=== PATIENT | male | born 1940 | race Caucasian/White ===

== ENCOUNTER 2020-04-07 17:50 | Inpatient (IN) | payer OTHER ==
[~2020-04-07] VITALS: Ht 172.7 cm; Wt 85.9 kg
[2020-04-07 19:33] VITALS: BP 86/56
--- NOTE | 2020-04-07 19:39 | NUR ---
PATIENT ARRIVED ON UNIT VIA W/ FROM [facility]. TAKEN TO ER. R/O ASSESS COVID. BACK TO THIS UNIT. PT ALERT XS 1-2 V.S. 98.3 22 80 108/63 O2 SAT 96 % RA. LUNGS CTA / DIM NO COUGH NO RESP DISTRESS, PT HAS NO TEETH NO DENTURES. NO HEARING AIDS , ABD SOFT ROUNDED. STATES BM 04/06/20 PT HAS SKIN TEARS AND ABRASIONS WOUND CARE PICTURES TAKEN. PT NEEDS TANK SYSTEMS MAINTAINER, TOENAILS NEED TRIMMED. PT STATES DOES NOT SMOKE DOES NOT DRINK. DOES NOT WEAR O2 AT HOME. BELONGINGS BROUGHT 1 T SHIRT 1 PAIR OF PAPER PANTS AND 1 WATCH WITH BLACK BAND. PT ASSIST XS 2 TO W/C WITH CHAIR ALARM. TAKEN TO DINING ROOM STATES NO PAIN AND NO RESP DISTRESS NOTED.
--- NOTE | 2020-04-08 05:18 | NUR ---
Assumed care of pt @ 1900. Pt calm et cooperative this shift. Took medications whole without difficulty. Socialized in dayroom with peers until HS. Ambulates with assistance of staff et unsteady gait. VSWNL. Health assessment with multiple skin abnormalities that were noted et photographs in chart. No other abnormalities noted at this time. Denies SI/HI. Currently resting in recliner in dayroom with eys open. Will continue to monitor per protocol.
[2020-04-08 09:36] VITALS: BP 93/59
--- NOTE | 2020-04-08 13:41 | NUR ---
IRINA called and spoke with pt's spouse and gissel Cooley who is the 12/06 caregiver. Sw completed the intake assessment and TP. Irina set up a family meeting for 04/09 at 10am. Family would like pt to go home after inpt psych
[2020-04-08 15:40] LABS: CALCIUM 8.7 mg/dL (8.5-10.1); CREATININE 1.4 mg/dL (0.7-1.3); POTASSIUM 4.7 mmol/L (3.5-5.1)
--- NOTE | 2020-04-08 18:22 | NUR ---
0700 ASSUMED CARE OF PATIENT, PATIENT IN DAYROOM AT THAT TIME ASLEEP. 0800 PATIENT SITTING AT TABLE FOR BREAKFAST. PATIENT ATE 100% OF MEAL. MEDICATIONS TAKEN WHOLE WITHOUT DIFFICULTY. PATIENT LUNG SOUNDS CLEAR, BS ACTIVE. PATIENTS AGGITATION INCREASES AROUND NOON AND ASKING TO LEAVE. EVENT ORGANIZER EXPLAINS TO PATIENT REGARDING FALLS AND PLAN IN PLACE TO PREVENT. CHAIR ALARM IN PLACE. PATIENT CONTINUES TO GET UP WITHOUT ASSISTANCE. PATIENT AMBULATES WITH A SHUFFLE. PATIENT SPEAKS WITH VIA PHONE AND AGGITATION DECREASES AFTER THAT. PATIENT TO BR X2 WITH LOOSE TO WATER BROWN STOOL WILL CONTINUE TO MONITOR AND PASS INFO IN REPORT. WILL CONTINUE TO MONITOR
[2020-04-08 19:56] VITALS: BP 95/55
[2020-04-08 21:30] VITALS: BP 95/55
--- NOTE | 2020-04-09 04:50 | NUR ---
Assumed pt care at 1900. Pt alert to self only on assesment and impulsive, getting up from chair to chair in the day room at beginning of shift several times w/o waiting on staff help. Also asking about when he can go home. Up with shaffled/slow gait,WC used for safety. Took HS meds w/o problems. No SI/HI voiced.Pt unable to sleep;sleep aid administered with partial effect noted. Pt has BLE edema 2-3+,needs frequent reminders to elevate extremities w/o success. Up at this time sitting on the chair in his room. Chair alarm on,will continue to monitor pt.
[2020-04-09 07:50] VITALS: BP 107/56
--- NOTE | 2020-04-09 10:56 | NUR ---
Irina and Dr storm had a family meeting and it was dcided by marc that pt needs to be placed in a LTC memory care. Pt's family reported that a medicaid josafat was generated at [facility]. Irina asked [facility] to get a copy of that. family understands that pt will go to the first LTC that acceps him. Irina sent referrals to [facility] and [facility]
--- NOTE | 2020-04-09 14:02 | NUR ---
JEREL faxed the DPOA paperwork to Maye [facility] [phone] fax confirmation received
--- NOTE | 2020-04-09 14:08 | NUR ---
Pt was declined at [facility]- they are full, [facility] as they are not secure enough. Sw also sent referral to [facility].
--- NOTE | 2020-04-09 14:12 | NUR ---
Irina also sent referral to [facility]
--- NOTE | 2020-04-09 17:28 | NUR ---
1700 PATIENT TO DAYROOM FROM BEDROOM USING WALKER AND ASSISTED X1. PATIENT EATING DINNER AT THAT TIME. MEDICATIONS GIVE WHOLE WITHOUT DIFFICULTY. DENIES OTHER NEEDS.
--- NOTE | 2020-04-09 18:32 | NUR ---
PATIENT SITTING IN DAYROOM AT TABLE. DRESSING TO LEFT ARM REMOVED WITH SMALL ABRASION NOTED, NO DRAINAGE AND LEFT OPEN TO AIR. DRESSING TO RIGHT KNEE REMOVED AND CLEANED AND REDRESSED. SMALL SEROUS DRAINAGE NOTED. PATIENT CALM AND COOPERATIVE AT THAT TIME. PATIENT REQUESTING TO CALL FAMILY. WILL ASSIST PATIENT TO COMMUNICATE WITH FAMILY SOON PHONE AVAILABLE. WILL CONTINUE TO OBSERVE
[2020-04-09 20:11] VITALS: BP 108/57
--- NOTE | 2020-04-10 05:37 | NUR ---
Assumed care of pt @ 1900. Pt calm et cooperative most of shift. Pt became agitated in felt dyeing machine tender hours because he did not want to stay seated or lie down in bed. Took medications whole without difficulty. Ambulates with shuffling gait. Pt encouraged several times to use the walker but only gets the walker when prompted. VSWNL. Health assessment with no abnormalities other than previously noted. Denies SI/HI. Currently resting in bed with eyes closed. Will continue to monitor per protocol.
[2020-04-10 07:54] VITALS: BP 95/43
--- NOTE | 2020-04-10 16:30 | NUR ---
[facility] declined Pt
[2020-04-10 18:04] VITALS: BP 95/43
--- NOTE | 2020-04-10 18:12 | NUR ---
ASSUMED CARE AT 0700 THIS MORNING. PT. UP, DRESSED AND ON THE UNIT. HE IS PLEASANT AND COOPERATIVE WITH STAFF AND PEERS. HE WAS PLEASANT AND COOPERATIVE WITH TAKING HIS MEDICATIONS. HE ATE HIS MEALS AND WAS ON THE UNIT MUCH OF THE DAY.
[2020-04-10 19:15] VITALS: BP 93/53
[2020-04-10 21:00] VITALS: BP 95/43
--- NOTE | 2020-04-10 22:00 | NUR ---
Assumed care of patient this pm shift. Patient sitting in mileu with peers. Patient smiling and appears content. Patient denies pain. Patient denies hi/si. Patient takes medications whole. Patient ambulates with walker. Patients assessment shows clear breath sounds, active bowel sounds, and s1 s2 heard with auscultation. Patient recieved 2mg of haldol in the evening as patient was showing negative behaviors and became difficult to redirect. We will continue to monitor per hospital protocol.
[2020-04-11 07:39] VITALS: BP 83/40
[2020-04-11 10:18] VITALS: BP 83/40
--- NOTE | 2020-04-11 10:42 | NUR ---
ASSUMED CARE AT 0700 THIS MORNING. PT. CONTINUES TO BE STABLE. HE REMAINS QUITE CONFUSED. HE IS A&O X 1 TO 2. HE AMBULATES WITH WALKER, BUT FORGETS IT OFTEN AND NEEDS REMINDED TO RETRIEVE IT TO USE. HE AMBULATES WITH A SHUFFLING GAIT. HE IS PLEASANT AND COOPERATIVE WITH TAKING MEDICATIONS. ATE WELL THIS MORNING.
--- NOTE | 2020-04-11 11:38 | NUR ---
JEREL faxed referrals to the following [facility]: [phone] [facility]: [phone] [facility]: [phone]
--- NOTE | 2020-04-11 17:54 | H ---
[facility] [place] [address] HISTORY AND PHYSICAL Name: MIKE HERNANDEZ Room #: 520B-B ADM IN M.R.#: [id number] Admission: 04/07/20 Attend Phys: Munir Contreras DO Discharge: Date of : 40 Report #: [id number] THIS REPORT FOR: cc: MEGHANN - No family physician/PCP FAM - No family physician/PCP Munir Contreras DO ~ CC: Munir Contreras [facility] physician/PCP DATE OF SERVICE: 04/07/2020 INPATIENT PSYCHIATRIC EVALUATION ATTENDING PHYSICIAN: Munir Contreras DO NON PROFIT DIRECTOR: Calbe Quintanilla MD PRIMARY CARE PHYSICIAN: Kevin Lowe MD HOSPITALIST CARE: Francisca Cota DO REASON FOR ADMISSION: Transfer from [facility] due to confusion, agitation, possible need for placement. SOURCES OF INFORMATION: Records from [facility], brief interview with the patient who is a very poor historian. HISTORY OF PRESENT ILLNESS: This is a 79-year-old male admitted via transfer from [facility] in [place], [place]. The patient apparently lives with his who has a fair degree of disability. His home is in [place], [place], his date of admission was April 03 to [facility] and apparently he was admitted with encephalopathy, likely due to chronic liver failure. He had agitative behaviors. He has had a previous hospitalization at [facility] in February of this year. He had been sent there from [facility] due to cirrhosis of the liver and had a paracentesis. While at [facility], the patient was prescribed Geodon. He was discharged home with family following the hospitalization. Family brought the patient back to the Emergency Room during the current admission at [facility] due to concerns for increased agitation, worsening mood and falls prior to the admission. On the floor at the [facility], he was reported to have agitation, mood lability at times yelling and screaming throughout the night. He has also had periods of calm time. At [facility], he was oriented to person. He knows he was in the hospital. He reported it was November 22 and to me he states that it is Monday. He does not know the month. He had slept poorly throughout at night at [facility]. He was eating adequately. He was unsure why he was at [facility]. He denied falling, denied difficulty with balance. He stated that things have been fine at home. He reported he was ready to go home. He [facility] [address] [place] [address] HISTORY AND PHYSICAL Name: MIKE HERNANDEZ Room #: 520B-B [facility]#: [id number] Admission: 04/07/20 Attend Phys: Munir Contreras DO Discharge: Date of : 40 Report #: [id number] has lack of insight and his family is concerned about his safety at home. Family reported to the sales and merchandising representative at [facility] that they called EMS due to the patient's level of agitation and falls prior to admission. Family has expressed concerns that they were no longer able to keep the patient safe at home. At times the patient threatens family members, the patient is known to be impulsive. He did try and leave the hospital while at [facility], but it was unsuccessful. SUBSTANCE USE HISTORY: Denied. PAST MEDICAL HISTORY: Obesity, hyperlipidemia, COPD; cirrhosis of the liver due to history of alcoholism, I am not clear the last time he drank, but it has been quite a few years according to our adoption social worker; hypothyroidism. PSYCHIATRIC HISTORY: Tobacco use disorder, history of dementia. MEDICATIONS: Apparently, flecainide, also he is taking Geodon 20 mg oral 3 times a day, is also receiving spironolactone, furosemide, lactulose, levothyroxine, memantine, and Pravachol. FAMILY HISTORY: Diabetes, arthritis, heart disease. Also family psychiatric history, the patient's father likely had dementia. SOCIAL HISTORY: Lives with his , Tatiana, phone number [phone]. Occupational history, worked as a director private music therapy agency. history, [employer] army service. His daughter also provides care in the home. REVIEW OF SYSTEMS: Unable to obtain review of systems today. PSYCHIATRIC DIAGNOSES: From [facility], disruptive mood and dysregulation, probable unspecified dementia, altered mental status. Looks like they increased Geodon to 40 b.i.d. and Ativan, they just made, suggestions. There is DPOA for the patient, there also appears adult protective services report has been filed. A copy of the DPOA document, supposedly it was faxed to our facility. He does have some wounds on the right buttock 0.5 x 1 cm ____. There is a DPOA, which was Tatiana and she is the ultimate decision maker. I will have adoption social worker to schedule family meeting. LABORATORY DATA: White count 7.7, H and H 12.3 and 34.4 hematocrit, platelet count 125. Lymphocyte percentage is slightly low at 16%, neutrophil percentage is high at 71%. Electrolytes; sodium 141, potassium 3.9, chloride 107, bicarbonate 23, anion gap 11, glucose 123, BUN 20, creatinine 1.0, calcium 9.0, total protein 6.5, albumin 3.2, alkaline phosphatase 146, AST 26, ALT 17, total [address] [address] HISTORY AND PHYSICAL Name: MIKE HERNANDEZ Room #: 520B-B ADM IN .R.#: [id number] Admission: 04/07/20 Attend Phys: Munir Contreras DO Discharge: Date of : 40 Report #: [id number] bilirubin 1.1. GFR, non-, greater than 60. Ammonia was 52. DIAGNOSES: Medically at [facility] were acute on chronic hepatic encephalopathy, continue lactulose, liver cirrhosis, type 2 diabetes mellitus, hypertension, mixed hyperlipidemia, adult hypothyroidism, COPD, and obesity - there is not a weight here, so I cannot quote the BMI. On exam today, he is seated at table. He is having trouble feeding himself with some bytes in the mouth, some food ending up on the shirt. He is nonambulatory. Physical therapy did evaluate him and they are picking him up for active therapy. VITAL SIGNS: Today, temperature 36.7, pulse 90, respirations 16, BP 93/59. CURRENT MEDICATIONS: In the hospital; thiamine 100 mg p.o. daily, furosemide 40 mg p.o. daily, finasteride 5 mg p.o. daily, Geodon 20 mg p.o. b.i.d. with meals, levothyroxine 175 mcg p.o. daily, spironolactone 25 mg p.o. twice per day, potassium chloride 10 mEq p.o. b.i.d., lactulose 20 g p.o. b.i.d., atorvastatin 10 mg p.o. at bedtime, zolpidem 5 mg p.o. at bedtime p.r.n. sleep. House PRNs including Zofran. MENTAL STATUS EXAMINATION: This is a well-developed, unkempt male, appearing stated age, seated in a Nimisha chair. Attention limited. Concentration limited. Speech slow, soft. Thought process linear and very limited. Thought content, relative poverty of thought. No psychomotor agitation. No psychomotor retardation. Denied SI or HI. Denied auditory, visual, or tactile hallucinations. Memory not formally tested and noted to be impaired. Insight impaired, judgment impaired. Fund of knowledge below average. FORMULATION: A 79-year-old male with known history of dementia and delirium due to liver cirrhosis, admitted for symptom control and assistance with placement. DIAGNOSES: At this time, major neurocognitive disorder, likely multifactorial. Potential causes include alcoholism, Alzheimer disease and contributions from the Liver disease with behavioral disturbance. He has a number of medical comorbidities as stated from his [facility] physical, type 2 diabetes mellitus, hypertension, mixed hyperlipidemia, adult hypothyroidism. PLan: Evaluate and stabilize. Hospitalist consulted. Comments, I did not see a TSH done at [facility], so we will order that here. It does not look like the hospitalist has seen him at [facility], so need to work on that. Evaluate, stabilize, obtain collateral. Family meeting scheduled for tomorrow morning. Likely increase Geodon in a day or so. Time spent on interview, review of records, coordination of care for this [address] [address] HISTORY AND PHYSICAL Name: MIKE HERNANDEZ Room #: 520B-B ADM IN M.R.#: [id number] Admission: 04/07/20 Attend Phys: Munir Contreras, Discharge: Date of : 40 Report #: [id number] patient is at least 45 minutes. Also pressure ulcers were noted, skin tear, right knee abrasion and left middle finger blister Band-Aid. STRENGTHS: He is insured, supportive family. WEAKNESSES: Multiple morbidities, advancing age and reported dementia. <ELECTRONICALLY SIGNED> By: Munir Contreras DO 04/11/20 1754 1320 1428 Munir Contreras DO /nt
[2020-04-11 19:31] VITALS: BP 108/69
--- NOTE | 2020-04-12 04:36 | NUR ---
Assumed care of pt @ 1900. Pt calm et cooperative with pleasant demeanor this shift. Took medications whole without difficulty. Ambulates ad oc with assistance of walker with a shuffling gait. Socialized with peers in dayroom until HS. VSWNL. Health assessment with no abnormalities other than previously noted. Denies SI/HI. Currently resting in recliner in dayroom with eyes closed. Pt prefers to sleep in recliner as opposed to his bed. Assisted to toilet several times through the night to urinate. Will continue to monitor per protocol.
[2020-04-12 07:41] VITALS: BP 106/53
--- NOTE | 2020-04-12 11:11 | NUR ---
0700 ASSUMED CARE OF PATIENT. PATIENT SITTING IN DAYROOM AT THAT TIME. PATIENT CALM AND COOPERATIVE. PATIENT DENIES PAIN. PATIENT ASKS TO SPEAK WITH , TAX ACCOUNTING MANAGER EXPLAINED TO PATIENT HE COULD DO SO AFTER BREAKFAST. PATIENT EATS BREAKFAST 100%. MEDICATION TAKEN WHOLE WITHOUT DIFFICULTY 0845 PATIENT SPEAKS WITH ON PHONE PATIENT HAPPY HE WAS ABLE TO COMMUNICATE WITH HER. ASSISTED PATIENT TO BR, VOIDED X1. PATIENT DENIES PAIN, DENIES SI/HI. FALL RISK PROCEDURE IN PLACE WITH CHAIR ALARM. PATIENT EDUCATED ON CHAIR ALRM, PATIENT NEEDS CONSTANT REENFORCEMENT.
--- NOTE | 2020-04-12 12:03 | NUR ---
[facility] left a VM. They declined the pt stating they could not meet his needs.
[2020-04-12 20:00] VITALS: BP 116/59
--- NOTE | 2020-04-13 04:44 | NUR ---
04-12-20 CARE TRANSFERED 1914; OBSERVED PT SITTING IN DAY ROOM RECLINER. 1950 PT AAOX2, CALM AND COOPERATIVE DURING NURSING ASSESSMENT. PT DENIES ANY PAIN OR SI/SH/HI. LATER NOTED THAT PT HAS RESTLESSNESS R/T HAVING THE URGE TO URINATE. ASSISTED PT TO TOILET ON SEVERAL OCCASSION, OBSERVED SMALL BM BROWN WITH YELLOW URINE IN TOILET. PLEASE REFER TO NURSING INTERVENTIONS FOR MORE INFORMATION. ZERO ACUTE DISTRESS NOTED THROUGH NURSING ROUNDS.
[2020-04-13 07:30] VITALS: BP 91/53
--- NOTE | 2020-04-13 10:32 | NUR ---
Jermain was in the Day room this Am when I arrived on the unit. The first question I was asked was am I being discharged today?. My response was Dr. Love will be in and he will be able to answer that question. He said Im giving you till 5 PM to get me out of here. When arrived he was made aware of this and explained to Jermain that he and talked. It was decided that Jermain would need placement in a facility were he could get care. Jermain asked to talk to his and and Jermain talked on the phone. Jermain did not participate in group this AM.
--- NOTE | 2020-04-13 14:07 | NUR ---
ASSISTED PATIENT TO BATHROOM. PATIENT INCONTINENT WITH URINE AND BOWL. LARGE BOWL MOVEMENT NOTED. DAFNE CARE GIVEN, DRSG TO BUTTUCKS REMOVED X2. BACK TO DAYROOM AMB WITH WALKER. PATIENT NOTED WITH SOB AND DIFFICULTY WALKING LONG DISTANCE. CHAIR ALARM IN PLACE. DR NOTIFIED OF PATIENTS DIFFICULTY WITH WALKING LONG DISTANCE. WILL CONTINUE TO OBSERVE.
[2020-04-13 14:14] VITALS: BP 91/53
[2020-04-13 15:42] VITALS: BP 113/53
[2020-04-13 16:38] LABS: CREATININE 1.5 mg/dL (0.7-1.3); POTASSIUM 4.9 mmol/L (3.5-5.1)
--- NOTE | 2020-04-13 17:47 | NUR ---
Jermain has been up in day room for most of the day. sores on rt knee dressing was reapplied. It was noted to be slghtly moist with sm.amt clear liqid. A small scab was noted on left upper arm, no dressing applied. Two very small sores dry and almost healed were noted on each buttocks , no dressing was need and not applied. Jermain ate all of his lunch and dinner. No issues with taking his meications were noted. BM's x2 today. Pt is in day room watching TV.
[2020-04-13 19:46] VITALS: BP 135/96
[2020-04-13 19:47] VITALS: BP 118/65
--- NOTE | 2020-04-14 02:44 | NUR ---
04-13-19 CARE TRANSFERED AT 1914 OBSERVED PT STANDING AT NURSING STATION WINDOW HOLDING ONTO RAILING. REPOSITION PT INTO W/CHAIR, EDUCATED PT TO PLEASE GET A STAFF MEMBER COLLAR RUNNER OR NURSE PRIOR TO AMBULATING WITHOUT WALKER OR W/CHAIR. NO RESPONSE FROM PT. PT DID REQUEST TO USE PHONE. DURING REPORT WAS TOLD THAT PT COULD USE PHONE THIS EVENING. 1924 PT SITTING IN DAY ROOM, AAOX3 PT PRESENTS IRRITABLE R/T SITUATION BUT WAS COOPERATIVE DURING NURSING ASSESSMENT. ASSISTED PT WITH DAILING PHONE ON SEVERAL OCCASSION AND PHONE WAS BUSY. PT HAD ZERO DIFFICUILTIES DURING MEDICATION ADMIN. BUT PT REPORTED HE IS JUST WANTING TO GET OUT OF HERE AND HE IS FRUSTRATED ABOUT HIS SITUATION. PT DID NOT WANT TO GO TO HIS ROOM. NOTED PT DECIDED TO STAY IN DAY ROOM AND NOTED ON ROUNDS PT EYES WERE CLOSED AND RESTING PEACEFULLY. OBSERVED COLLAR RUNNER ASSIST PT TO TOILET ON SEVERAL OCCASIONS, THROUGHOUT NIGHT. OF NOTE, PLEASE REFER TO NURSING INTERVENTIONS FOR MORE INFORMATION. ZERO ACUTE DISTRESS NOTED THROUGH NURSING ROUNDS.
[2020-04-14 08:00] VITALS: BP 110/59
--- NOTE | 2020-04-14 08:42 | NUR ---
PT SITTING OUT IN DINING ROOM. PT MARGO KEPT COMING DOWN, REPLACED MARGO WTIH SCRUB PANTS. PT DOES WALK WITH HOLDING ONTO FURINTURE OR WALKER. HE IS WANTING HIS BLACK SHOES. PT TOOK MEDS WITHOUT ANY ISSUES. PT DOES LIKE TO GO TO NURSE DESK AND SPEAK WITH SOFT METALS ENGRAVER HAND. NO BLACK SHOES ARE IN HIS ROOM. PT HAS LONG TOE NAILS. THERE IS A DRESSING TO LEFT ELBOW THAT IS INTACT, BUTTOCKS DRESSING, AND OPEN ABRASION TO RT LE THAT IS DRY.
--- NOTE | 2020-04-14 12:14 | NUR ---
Irina called [facility] and sent more updates to consider, Darshan denied as they are only acute.
--- NOTE | 2020-04-14 13:22 | NUR ---
JEREL also sent more updates to [facility] to reconsider
--- NOTE | 2020-04-14 14:16 | NUR ---
PT USING WALKER AT THIS TIME AFTER BATHROOM USE.
--- NOTE | 2020-04-14 15:12 | NUR ---
RT Progress Note- Participation is variable. Jermain is easily distracted by his environment or requests for various things- phone calls, etc. He has not displayed any adverse behaviors during interactions with RT.
[2020-04-14 20:48] VITALS: BP 123/46
[2020-04-14 21:00] VITALS: BP 123/46
--- NOTE | 2020-04-15 03:16 | NUR ---
PATIENT HAS BEEN CALM AND COOPERATIVE TONIGHT. HE STAYED UP IN THE DINING ROOM SITTING IN A RECLINER WITH CHAIR ALARM ON AND LAP THAIS FASTENED IN THE FRONT. PT DID ATTEMPT TO GET UP 3 TIMES. PT WAS WALKED TO ROOM TO USE THE BATHROOM. PT IS IMPULSIVE AND FORGETS HE IS NOT TO WALK ALONE. HE HAS TO BE REMINDED TO USE HIS WALKER. HE TOOK HIS HS MEDS WHOLE WITH WATER. HE DENIES PAIN. HE HAD AN HS SNACK THIS EVENING. HE REQUESTED TO SLEEP IN RECLINER IN DINING ROOM INSTEAD OF HIS BED. PATIENT IS ASLEEP IN RECLINER AT THIS TIME. RECLINER LOCKED AND RECLINED AND CHAIR ALARM IN PLACE AND ON. CONTINUING TO MONITOR.
--- NOTE | 2020-04-15 05:38 | NUR ---
PT BECAME AGITATED AND FRUSTRATED WITH LACING CUTTER'S WHEN THEY WERE TRYING TO HAVE HIM SIT IN RECLINER TO AVOID A FALL. PATIENT WAS ASSISTED TO THE BATHROOM WHERE HE VOIDED. HE WAS UPSET ABOUT A PAIR OF JEANS AND WANTED THEM WASHED. THEY ARE IN THE WASHER. HE STATES, "I WANT A JEFFERY TO THE WASHER ROOM AND I AM GOING TO SIT THERE UNTIL THEY ARE READY." I WALKED PATIENT TO LAUNDRY AND SHOWED HIM THAT THEY ARE STILL WASHING. WALKED HIM BACK TO THE DINING ROOM WHERE HE REFUSES TO SIT IN RECLINER, REFUSES TO USE WALKER. PT GIVEN OLANZAPINE PO PRN. PATIENT IS VERY ARGUMENTATIVE AND IS MAD AT LACING CUTTER'S. PT WANTING LACING CUTTER'S FIRED. HE IS SITTING IN A REGULAR CHAIR IN DINING ROOM NOW. LACING CUTTER AND THIS NURSE ARE MONITORING SINCE HE WILL NOT SIT ON CHAIR ALARM OR IN RECLINER.
[2020-04-15 07:45] VITALS: BP 95/55
--- NOTE | 2020-04-15 12:21 | NUR ---
Irina spoke with [facility] and they ahve accepted this pt clinically. They will be reviewing and setting up d/c before the end of this week. Irina is confirming that [facility] has begun the Medicaid Application. Pt will go skilled and is pending auth. Sw called spouse and reported thsi to her. spouse reported that she had a call from her spouse yesterday that was disturbing to her and another pt had asked about ehr finances. She asked that pt no longer has priviledges to call her. Irina reported this to nursing and US, and added to the white board.
--- NOTE | 2020-04-15 15:35 | NUR ---
OBSERVED TO HAVE INTERVALS OF RESTLESSNESS/MILD AGITATION THROUGHOUT SHIFT-EXPRESSES FRUSTRATION,ANGRY FACIAL EXPRESSION,RAISED VOICE WHEN COMMANDING NURSING STAFF TO "STOP TALKING AND GO GET MY BOOTS AND JARAD GODDAMM IT" ORIENTED TO PERSON ONLY. TOILET Q 2-3 HOURS BUT WILL OCCSSIONALLY REFUSE BECOME COMBATIVE WTIH ATTEMPTS TO WALK TO BATHROOM. GAIT VERY UNSTEADY AND PT WILL FREQUENTLY GET UP FROM ONE CHAIR AND MOVE TO ANOTHER 3-4 TIMES IN A ROW-CAUSING CHAIR ALARM TO SOUND FREQUENTLY WHICH APPEARS TO FURTHER INCREASE AGITATION YELLING LOUDLY "SHUT THAT GODDAMM THING UP BEFORE I THROW IT: GOOD APPETITE-ABLE TO FEED SELF, DENIES C/O PAIN/DISCOMFORT.
[2020-04-15 20:02] VITALS: BP 100/53
--- NOTE | 2020-04-16 04:43 | NUR ---
PATIENT HAS BEEN CALM AND COOPERATIVE TONIGHT. PATIENT FORGETS TO USE HIS WALKER AND HAS TO BE REMINDED FREQUENTLY. PATIENT ENJOYS MOVING FROM CHAIR TO RECLINER TO COUCH IN THE DINING ROOM. HE IS COOPERATIVE AND DOES NOT COMPLAIN ABOUT SITTING ON THE CHAIR ALARM. TONIGHT HE WALKED TO NURSE'S STATION AND ASKED ME IF I WOULD HELP PUT A BLANKET OVER HIS LAP. I GLADLY DID. PATIENT SEEMS TO BE MUCH MORE HAPPIER AND COMPLIANT WHEN HE FEELS HE HAS THE FREEDOM TO MOVE AROUND TO DIFFERENT CHAIRS OF HIS CHOICE. PATIENT IS A/0X1. HE IS CONTINENT AND DOES CALL FOR HELP WHEN HE NEEDS TO USE THE RESTROOM. PATIENT DID SLEEP IN HIS BED TONIGHT FOR SEVERAL HOURS BEFORE DECIDING HE WANTED TO SIT IN THE DINING ROOM AT AROUND 0400. PATIENT IS SITTING UP IN RECLINER IN DINING ROOM WITH CHAIR ALARM ON AND WALKER IN FRONT OF HIM. HE IS CALM AND RESTING QUIETLY. PATIENT TOOK HIS MEDS WHOLE WITH WATER. BED ALARM ON WHEN PATIENT IS IN BED AND BED IN LOW POSITION. PATIENT HAS DENIED PAIN. PT HAD HS SNACK. DENIES SI/HI/AVH.
[2020-04-16 08:19] VITALS: BP 131/71
--- NOTE | 2020-04-16 12:24 | NUR ---
HAS HAD EPISODES OF IRRITABLE DEMANDING BEHAVIOR THIS AM-DEMANDING TO TALK TO THE "BIG BOSS" I AM GETTING OUT OF HERE TODAY" BEGAN TO YELL AT L [facility] ON PHONE X 2 AND WAS UPSET WHEN STAFF WOULD NOT ALLOW A 3RD CALLL TO WITHIN SPAN OF 5 MINUTES. RESTLESS AND IMPULSIVE GETTING UP AND MOVING FROM CHAIR TO CHAIRIN DAYROOM-GAIT UNSTEADY AND FREQUENTLY FORGETS TO USE WALKER-RENAINS ON FALL PRECUTIONS WITH BED ALARM/CHAIR ALARM IN PLACE,
--- NOTE | 2020-04-16 13:16 | NUR ---
IRINA called and Thi kohli acceped this pt. They then asked for a COVID [address] storm to order this. Pt will now d/c 04/17 at 11 am. [facility] is sending transportation. This was reported to nursing staff. Pt will be going skilled first and then LTC. Irina also emailed the OA paperwork to Deyanira arciniega [phone] with [facility].
[2020-04-16 19:31] VITALS: BP 103/57
--- NOTE | 2020-04-17 03:17 | NUR ---
PATIENT AOX2 CONFUSED AND FORGETFUL. PATIENT DENIED PAIN OR DISCOMFORT. PATIENT ENCOURAGED FLUIDS. PATIENT IRRITABLE AT TIMES. PATIENT HAS A FLAT AFFECT, POOR EYE CONTACT, FAIR GROOMING AND HYGIENE. PATIENT HAS UNSTEADY GAITS. PATIENT ASLEEP IN THE DAY ROOM. FALL PRECAUTION IN PLACE.
[2020-04-17 07:49] VITALS: BP 75/47
[2020-04-17] MEDS ORDERED: LIPITOR10 MG PO (09:18)
[2020-04-17] MEDS ORDERED: SPIRONOLACTONE25 M1 PO (09:19)
[2020-04-17] MEDS ORDERED: ZIPRASIDONE HCL20 M1 PO (09:20)
[2020-04-17] MEDS ORDERED: KLOR-CON 1010 MEQ PO (09:21)
[2020-04-17] MEDS ORDERED: LASIX 40 MG TAB40 M1 PO (09:24)
[2020-04-17] MEDS ORDERED: LACTULOSE20 GM/30 M PO (09:26)
[2020-04-17] MEDS ORDERED: VITAMIN B-1100 M2 PO (09:27)
[2020-04-17] MEDS ORDERED: SYNTHROID175 MCG PO (09:27)
[2020-04-17] MEDS ORDERED: FINASTERIDE5 MG PO (09:28)
--- NOTE | 2020-04-17 10:50 | NUR ---
SW made packet and left it on the chart. Sw faxed the d/c summary and orders to [facility]. Reported this to staff. Pt also had a negative covid 19 test that was faxed this AM.
--- NOTE | 2020-04-18 10:12 | D ---
[facility] [place] [address] DISCHARGE SUMMARY Name: MIKE HERNANDEZ Room #: 520B-B [facility] IN M.R.#: [id number] Admission: 04/07/20 Attend Phys: Munir Contreras DO Discharge: 04/17/20 Date of : 40 Report #: [id number] THIS REPORT FOR: cc: MEGHANN - Nuha family physician/PCP MEGHANN - No family physician/PCP Munir Contreras DO ~ THIS REPORT FOR: //name// CC: Munir ZAVALETA physician/PCP DATE OF SERVICE: 04/17/2020 INPATIENT PSYCHIATRIC DISCHARGE SUMMARY ATTENDING PHYSICIAN: Munir Contreras DO. ESCALATOR INSTALLER AT THE TIME OF DISCHARGE: Bryan Romero M.D. DISCHARGE DIAGNOSES: Major neurocognitive disorder due to multiple etiologies with behavioral disturbance, improved, unspecified psychosis. MEDICAL COMORBIDITIES: Include cirrhosis, on Lasix, Aldactone, and lactulose; hypotension, probably secondary to agents for cirrhosis, blood pressure should be monitored and systolic pressure should be above 90 and Lasix and Aldactone will be held if he is hypotensive below 90 mmHg; benign prostatic hypertrophy, on finasteride; hypothyroidism, recommend 2 week dose, recheck of T3 level and T4 level due to a low T3, this is probably due to some medication refusal over the month before admission; hyperlipidemia, on statin. DISCHARGE DIET: Regular. ACTIVITY LEVEL: As tolerated. The patient uses a walker, distant supervision for ambulation. The patient requires 24/7 supervision and assistance. DISCHARGE MEDICATIONS: As follows: Atorvastatin 10 mg p.o. at bedtime, spironolactone 25 mg p.o. b.i.d., ziprasidone 40 mg b.i.d. with meals at least 500 calories that is for psychosis, lactulose 20 mg p.o. b.i.d. with parameter of a 2-3 stools a day, hold if beyond 3 stools a day, potassium chloride 10 mEq p.o. b.i.d. before meals because of Lasix, furosemide 40 mg p.o. daily for cirrhosis and portal hypertension, levothyroxine 175 mcg p.o. daily for hypothyroidism, thiamine 100 mg p.o. daily for supplementation, finasteride 5 mg p.o. daily for BPH. The patient will receive Psychiatric and medical care by receiving facility. The patient will be discharging to the [facility] for his memory care. [address] [address] DISCHARGE SUMMARY Name: MIKE HERNANDEZ Room #: 520B-B [facility] IN [facility]#: [id number] Admission: 04/07/20 Attend Phys: Munir Contreras DO Discharge: 04/17/20 Date of : 40 Report #: [id number] Initially, he will be skilled due to the COVID-19 requirements and then continue long-term care. He does have Medicaid. REASON FOR ADMISSION: Back on 04/07/2020 is as follows: Sent from [facility] due to family's inability to care for him. He lives in the [place], [place]. Apparently, he was admitted 04/03/2020 at [facility] due to encephalopathy. He had a previous psychiatric hospitalization in 02/2020 at [facility]. Apparently during the admission and this time at home after [facility], he had increased agitation, worsening mood, falls. HOSPITAL COURSE: The patient was admitted to Geriatric Psychiatry Unit. I elected to go ahead and utilize Geodon at a higher dose that was increased to 40 mg p.o. daily. He had tolerated this well. Earlier in admission, he did have some resistive with cares, more difficulty redirecting. As a week or so progressed, the patient became more redirectable, friendly, calm, showing better safety attention. On the day of discharge, the patient was felt ready to step down and was not suicidal or homicidal, in fair hygiene. LABORATORY DATA: Significant laboratories this admission: We did a CMP on 04/13/2020 most recently. Checked electrolytes, they were within normal limits, BUN 36, creatinine 1.5, sodium was 136, potassium 4.9, chloride 102, bicarbonate 25. Ammonia level was 18 on 04/13/2020. TSH was 12.63 on 04/08/2020 and free T3 was 1.78. We already referenced, I believe, the subclinical hypothyroidism is due to previous poor compliance. PHYSICAL EXAMINATION: VITAL SIGNS: On the day of discharge are as follows: Temperature 36.8, pulse 70, respirations 16, BP 75/47- suspect this reading is not accurate as no s/s of hyptotension when I rounded morning O2 sat 96%. MUSCULOSKELETAL: Assisted gait, little bit kyphotic. MENTAL STATUS EXAMINATION: This is a well-developed, age-appearing male. Attention fair. Concentration limited. Speech is normal rate. Thought content: Focused on discharge day of the whereabouts of his clothes. He has been concerned about it the last few days. Thought process is linear and goal directed. Thought content, relatively poverty of thought besides he thinks he seems to be obsessional about like his clothes. Denied SI or HI. Denied auditory, visual, or tactile hallucinations. Mood and affect: Mood euthymic, fair range. Memory grossly impaired. Insight impaired, judgment impaired. Fund of knowledge, well below average. PROGNOSIS: For this patient is guarded to poor given age of 79. He has major [facility] [address] [place] [address] DISCHARGE SUMMARY Name: MIKE HERNANDEZ Room #: 520B-B [facility] IN M.R.#: [id number] Admission: 04/07/20 Attend Phys: Munir Contreras DO Discharge: 04/17/20 Date of : 40 Report #: [id number] neurocognitive disorder with cirrhosis. Comfort, safety and dignity should get ongoing care goals and long-term care. <ELECTRONICALLY SIGNED> By: Munir Contreras DO 04/18/20 [id number] Munir Contreras, /nt
== END 2020-04-17 11:00 | DRG 884 ==
LOC: SBH 17:50
PROVIDERS: ADMIT Psychiatry & Neurology Psychiatry
DX: F01.51 Vascular dementia, unspecified severity, with behavioral disturbance (principal); K76.6 Portal hypertension; K74.60 Unspecified cirrhosis of liver; I95.9 Hypotension, unspecified; N40.0 Benign prostatic hyperplasia without lower urinary tract symptoms; E03.9 Hypothyroidism, unspecified; E78.5 Hyperlipidemia, unspecified; F29 Unspecified psychosis not due to a substance or known physiological condition; E11.9 Type 2 diabetes mellitus without complications; I10 Essential (primary) hypertension; K72.10 Chronic hepatic failure without coma; E66.9 Obesity, unspecified; L89.319 Pressure ulcer of right buttock, unspecified stage; F10.20 Alcohol dependence, uncomplicated; Y90.9 Presence of alcohol in blood, level not specified; J44.9 Chronic obstructive pulmonary disease, unspecified; Z88.5 Allergy status to narcotic agent; Z87.891 Personal history of nicotine dependence; Z79.899 Other long term (current) drug therapy; Z68.28 Body mass index [BMI] 28.0-28.9, adult; Z03.818 Encounter for observation for suspected exposure to other biological agents ruled out
CPT/HCPCS: 10880